=== PATIENT | female | born 1955 | race Caucasian/White ===

== ENCOUNTER 2020-12-06 12:58 | Emergency (ER) | payer MEDICARE, MEDICAID, SELFPAY ==
[2020-12-06 13:11] VITALS: BP 147/69; PULSE 82; RESP 20; TEMP 36.3; O2SAT 100
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
[2020-12-06 13:29] VITALS: BP 147/69; PULSE 82; RESP 20; TEMP 36.3; O2SAT 100
== END 2020-12-06 14:03 | disposition home or self-care (01) ==
PROVIDERS: Emergency Provider Registered Nurse; PCP Family Medicine
DX: S39.012A Strain of muscle, fascia and tendon of lower back, initial encounter (principal); X50.9XXA Other and unspecified overexertion or strenuous movements or postures, initial encounter; M79.652 Pain in left thigh; M25.562 Pain in left knee; Z87.891 Personal history of nicotine dependence; J45.909 Unspecified asthma, uncomplicated; E78.00 Pure hypercholesterolemia, unspecified; M79.7 Fibromyalgia; I10 Essential (primary) hypertension; E03.9 Hypothyroidism, unspecified; I25.2 Old myocardial infarction; E11.42 Type 2 diabetes mellitus with diabetic polyneuropathy; M48.061 Spinal stenosis, lumbar region without neurogenic claudication; Z95.5 Presence of coronary angioplasty implant and graft
CPT/HCPCS: 99212; G0463

== ENCOUNTER 2021-05-03 09:57 | Emergency (ER) | payer MEDICARE, MEDICAID, SELFPAY ==
--- NOTE | ~2021-05-03 | XR_ITS ---
EXAMINATION: XR knee RT min 4V DATE: 05/03/2021 11:35 INDICATION: One week of nontraumatic medial right knee pain and swelling. TECHNIQUE: Anteroposterior, 2 oblique and crosstable lateral views of the right knee were obtained COMPARISON: None. FINDINGS: Alignment is normal. No fracture. Patellar marginal osteophytes with relatively preserved joint spac e consistent with mild osteoarthritis. No joint effusion/layering lipohemarthrosis. Nonspecific mild subcutaneous edema anteromedial to the knee. IMPRESSION: 1. No right knee joint effusion or acute osseous abnormality. Reviewed, dictated and finalized at location A. [facility]
[2021-05-03 10:12] VITALS: BP 135/65; PULSE 88; RESP 20; TEMP 36.7; O2SAT 99
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
== END 2021-05-03 11:49 | disposition home or self-care (01) ==
PROVIDERS: Emergency Provider Nurse Practitioner
DX: M25.561 Pain in right knee (principal); Z87.891 Personal history of nicotine dependence; J45.909 Unspecified asthma, uncomplicated; E78.00 Pure hypercholesterolemia, unspecified; M79.7 Fibromyalgia; I10 Essential (primary) hypertension; E03.9 Hypothyroidism, unspecified; I25.2 Old myocardial infarction; E11.42 Type 2 diabetes mellitus with diabetic polyneuropathy; M48.061 Spinal stenosis, lumbar region without neurogenic claudication; Z79.01 Long term (current) use of anticoagulants
CPT/HCPCS: 73564; 99213; G0463

== ENCOUNTER 2021-09-24 10:47 | Emergency (ER) | payer MEDICARE, MEDICAID, SELFPAY ==
[2021-09-24 10:59] VITALS: BP 137/75; PULSE 69; RESP 16; TEMP 36.7; O2SAT 100
[2021-09-24 11:12] VITALS: BP 137/75; PULSE 69; RESP 16; TEMP 36.7; O2SAT 100
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
== END 2021-09-24 11:23 | disposition home or self-care (01) ==
PROVIDERS: Emergency Provider Nurse Practitioner Family; PCP Family Medicine
DX: L30.9 Dermatitis, unspecified (principal); Z87.891 Personal history of nicotine dependence; J45.909 Unspecified asthma, uncomplicated; E78.00 Pure hypercholesterolemia, unspecified; M79.7 Fibromyalgia; I10 Essential (primary) hypertension; E03.9 Hypothyroidism, unspecified; I25.2 Old myocardial infarction; E11.42 Type 2 diabetes mellitus with diabetic polyneuropathy; M48.061 Spinal stenosis, lumbar region without neurogenic claudication
CPT/HCPCS: 81003; 99213; G0463